=== PATIENT | male | born 1990 | race Caucasian/White ===

== ENCOUNTER 2017-03-09 21:27 | Emergency (ER) | payer BC, MEDICAID, OTHER ==
[2017-03-09 23:55] VITALS: BP 132/77; PULSE 82; RESP 16; TEMP 98.3; O2SAT 98
== END 2017-03-09 21:45 | disposition left against medical advice (07) | DRG 951 ==
LOC: ED 21:27
DX: Z53.9 Procedure and treatment not carried out, unspecified reason (principal)
CPT/HCPCS: 99282

== ENCOUNTER 2017-05-16 21:04 | Emergency (ER) | payer SELFPAY ==
[2017-05-16 21:04] VITALS: O2SAT 98
[2017-05-16] MEDS ORDERED: FLUMAZENIL 1 MG/10 ML SOL IV ONE (21:08)
[2017-05-16] MEDS ORDERED: NALOXONE HYDROCHLORIDE 0.4 MG/ML SOL IV ONE (21:08)
[2017-05-16] MEDS ORDERED: INSULIN HUMAN REGULAR 100 U/ML SOL ONE (21:09)
[2017-05-16] MEDS: EPINEPHRINE HCL 0.1 MG/ML SOL IV PRN ×2 (21:10→21:15)
[2017-05-16] MEDS ORDERED: ATROPINE 0.1 MG/ML SOL IV ONE (21:11)
[2017-05-16] MEDS ORDERED: INSULIN HUMAN REGULAR 100 U/ML SOL IV ONE (21:14)
[2017-05-16 22:48] LABS: BASOPHILS % (AUTO) 2 % (0-3); EOSINOPHILS % (AUTO) 1 % (0-9); HEMATOCRIT 50 % (39-53); MEAN CORPUSCULAR HGB CONC 31.4 gm/dl (32.0-36.0); MONOCYTES % (AUTO) 5.9 % (0-12); NEUTROPHILS % (AUTO) 24.9 % (37-80)
[2017-05-16 22:52] LABS: MEAN CORPUSCULAR VOLUME 104 fL (80-100)
[2017-05-16 22:54] LABS: ALBUMIN 3.7 gm/dl (3.4-5.0); ALT 770 IU/L (14-63); CALCIUM 9.4 mg/dl (8.5-10.1); GLOM FILT RATE 39 mL/min (>60); POTASSIUM 8.7 mMol/L (3.5-5.1); SALICYLATE 4.7 mg/dl (2.8-30.0); SODIUM 152 mMol/L (136-145)
[2017-05-17] MEDS ORDERED: FLUMAZENIL 1 MG/10 ML SOL IV ONE (00:20)
[2017-05-17] MEDS ORDERED: NALOXONE HYDROCHLORIDE 0.4 MG/ML SOL ONE (00:20)
[2017-05-17] MEDS ORDERED: EPINEPHRINE 1:10,000 PREFILL 0.1 MG/ML SOL ONE ×2 (01:14)
[2017-05-17] MEDS ORDERED: ATROPINE 0.1 MG/ML SOL ONE (01:14)
== END 2017-05-17 00:55 | disposition expired | DRG 917 ==
LOC: ED 21:04
DX: T43.222A Poisoning by selective serotonin reuptake inhibitors, intentional self-harm, initial encounter (principal); I46.8 Cardiac arrest due to other underlying condition; T44.7X2A Poisoning by beta-adrenoreceptor antagonists, intentional self-harm, initial encounter
CPT/HCPCS: 80053; 80307; 84484; 85025; 85610; 85730; 99291; J0461; J1815; J2310